=== PATIENT | male | born 1995 | race Caucasian/White ===

== ENCOUNTER 2022-06-08 22:43 | Outpatient (CLI) | payer SELFPAY | END 2022-06-08 22:44 | disposition home or self-care (01) | LOC: AMB 06-27 01:45 | PROVIDERS: PCP Family Medicine; Visit Provider Family Medicine | DX: R45.851 Suicidal ideations (principal) | CPT/HCPCS: A0425; A0429 ==

== ENCOUNTER 2022-06-08 22:58 | Emergency (ER) | payer SELFPAY ==
[2022-06-08 23:12] VITALS: BP 127/87; PULSE 60; RESP 20; TEMP 36.8; O2SAT 99; BMI 23.8
--- NOTE | 2022-06-09 00:10 | ED_ITS ---
HPI - Psych General Chief Complaint: Psychiatric Problem/Disorder Stated Complaint: suicidal Time Seen by Provider: 06/08/22 23:48 History of Present Illness HPI Narrative: 26-year-old young man presented to the emergency department brought by EMS accompanied by police after apparently made threats to kill himself to someone reportedly his girlfriend. He says she is not my girlfriend but he did step in when her baby daddy was not available. He talks about couple kids that he seems to have some sense of responsibility for if she ever needs he says. I have not seen the supposed text. He also notes that he has now been blocked on his phone by her. He however was noted to have initiated a will. I do have the privilege of reading that. He has listed numerous beneficiaries of various items and money. Evidently mentioned to this Bobby that he was planning something in June; the inference understood was some harm to himself. He is denying at this time but does acknowledge that June has been a long month as I point out that it is the 08 of June. Brother (Abner?) apparently in 2013 I believe he says on June 22. Further Alexander's birthday is coming up in 3 days on the . He does have a gun at home. He does bequeath the gun and bullets in his will. He says he only uses it for target practice without intent to hurt himself with it. Underlying history of Crohn's status post partial bowel resection. His says he is unable to eat anything but liquids. He had just had some bad stomach cramps prior to my entering the room. Sometimes he will just eat solid food; force it down and deal with the pain he says. Takes a few swigs of Mountain Dew here in the room. I asked him how things have become so bad. He has mention that he does not have any insurance and so unable to participate in healthcare. Recently apparently mom also was diagnosed with cancer, or at least she mentioned it 2 or 3 months ago. He is unclear what cancer and apparently without any other details. He notes himself to be depressed. Other things that ?suck? in his life are working nights ago, persistent and recurrent abdominal pain, no health insurance, of his brother. At this point he would like his phone back so that he can talk with friends. He is wondering what he needs to do to get out of here. Frustrated that is not at work. Last ingestion of alcohol was a couple of weeks ago; apparently this does not exacerbate his abdominal pain. Denies a history of psychiatric cares. Trying to clarify further this will that was written, he says he just does not know how long he has left with regard to Crohn's. He says it was not senior sales representative of current suicidality. He also says that if I were to check with Bobby I would find police have been to her place numerous times and not once to his. Related Data Home Medications Medication Instructions Recorded Confirmed No Known Home Medications 06/08/22 06/08/22 Allergies Allergy/AdvReac Type Severity Reaction Status Date / Time No Known Drug Allergies Allergy Verified 06/08/22 23:11 [facility] Medical History (Updated 06/09/22 @ 04:54 by Rafael Goldberg MD) Borderline intellectual functioning Chronic static encephalopathy Crohn's disease of both small and large intestine with fistula Major depressive disorder Speech apraxia Surgical History (Updated 06/09/22 @ 02:53 by Dottie Sarkar RN) Hx of appendectomy Exam Narrative: Exam Narrative: Generally downcast. Somewhat sullen. Clearly annoyed to be here. Has speech impediment. Seems nonchalant and a little angry. Intermittently yawns widely.. Closed comedonal acne. Limited conversation. Breathing easily. Does not appear to be in distress. Head is atraumatic. Oropharynx is moist. Dentition in good repair. Lungs appear to be clear. Cardiovascular with regular rate and rhythm Abdomen with postoperative scars and soft. Const: Vital Signs, click to edit/add: Vital Signs - 24 hr 06/08/22 23:12 Temperature 98.2 F Pulse Rate [Pulse Oximeter] 60 Respiratory Rate 20 Blood Pressure [Ri ght Upper Arm] 127/87 Pulse Oximetry 99 Oxygen Delivery Me thod Room Air Documenting provider has reviewed patient's vital signs: yes Course Course Hospital Course: Relaxes over time in the ER though would rather be at work. He expresses this on numerous occasions. Contacts people and laughs with friends on cellphone. This does include Bobby and friend Charlie. Consultations Consultation #1: Attempted to get consult with [facility]. Continued to be deferred. Finally after 5 hours I sat down with Alexander and contracted him for safety Vital Signs Vital signs: Initial Vital Signs Temperature 98.2 F 06/08/22 23:12 Temperature Source Temporal Artery Scan 06/08/22 23:12 Pulse Rate 60 06/08/22 23:12 Respiratory Rate 20 06/08/22 23:12 Blood Pressure 127/87 06/08/22 23:12 Blood Pressure Mean 100 06/08/22 23:12 Pulse Oximetry 99 06/08/22 23:12 Oxygen Delivery Method 06/08/22 23:12 Vital Signs Temperature 98.2 F 06/08/22 23:12 Pulse Rate 60 06/08/22 23:12 Respiratory Rate 20 06/08/22 23:12 Blood Pressure 127/87 06/08/22 23:12 Pulse Oximetry 99 06/08/22 23:12 Oxygen Delivery Method 06/08/22 23:12 Temperature 98.2 F 06/08/22 23:12 Pulse Rate 60 06/08/22 23:12 Respiratory Rate 20 06/08/22 23:12 Blood Pressure 127/87 06/08/22 23:12 Pulse Oximetry 99 06/08/22 23:12 Oxygen Delivery Method 06/08/22 23:12 MDM - Psych MDM Narrative Medical decision making narrative: Spent a long time trying to discover what the challenges might be to his insurance coverage. It appears that had been living at home therefore with mother's income affecting him application. Mother now recently ill and not working. Did give information on [employer] but tried to assist also in applying for financial assistance here at the hospital as well as trying again for MA. I am hopeful that social workers would be able to help after the weekend. Some of this might be complicated by intellectual challenges as well. Medical Records Attestation: I reviewed the patient's medical records. Lab Data Attestation: I reviewed the patient's lab results. Labs: Lab Results 06/09/22 06/09/22 Range/Units 00:44 00:44 Urine Opiates Screen Negative (Negative) Ur Oxycodone Screen Negative (Negative) Urine Methadone Screen Negative (Negative) Ur Propoxyphene Screen Negative (Negative) Ur Barbiturates Screen Negative (Negative) U Tricyclic Antidepress Negative (Negative) Ur Phencyclidine Scrn Negative (Negative) Ur Amphetamines Screen Negative (Negative) U Methamphetamines Scrn Negative (Negative) U Benzodiazepines Scrn Negative (Negative) Urine Cocaine Screen Negative (Negative) U Marijuana (THC) Screen POSITIVE A* (Negative) Ur Drug Screen Comment See Note SARS-CoV-2 (PCR) Negative SARS-CoV-2 (Negative) Discharge Plan Discharge Clinical Impression: Other social stressor, Depression Patient Disposition: Home, Self-Care Condition: Improved Additional Instructions: I understand things are tough right now. Do let people try to help you. Do complete this paperwork and reapply for healthcare assistance. Meanwhile check in with [employer] -- the ones on the paperwork. Will ask our social workers to reach out to you to see if they can help with these applications/process. See your safety contract. If after reaching out to friends or maybe your mom you might still feel unsafe, please return to the emergency department. Prescriptions: No Action No Known Home Medications Follow Up/Referrals: Rafael Cole MD [Primary Care Provider] - Stand Alone Forms: [employer] Info Instructions
--- NOTE | 2022-06-09 00:56 | ED.NURSE ---
in room with patient and patient's cell phone to obtain phone number of the person he threatened suicide to earlier this evening.
[2022-06-09 01:36] LABS: Amphetamine Screen Urine Negative (Negative); Barbiturate Screen Urine Negative (Negative); Benzodiazepines Screen Urine Negative (Negative); Cocaine Screen Urine Negative (Negative); Methadone Screen Urine Negative (Negative); Methamphetamines Screen Urine Negative (Negative); Opiate Screen Urine Negative (Negative); Oxycodone Screen Urine Negative (Negative); Phencyclidine Screen Urine Negative (Negative); Tricyclic Antidepressant Urine Negative (Negative)
[2022-06-09 01:38] LABS: Cannabinoid Screen Urine POSITIVE (Negative)
[2022-06-09 01:51] LABS: SARS PCR* Negative SARS-CoV-2 (Negative)
--- NOTE | 2022-06-10 11:14 | PC.SOCIAL ---
Follow-up phone call to pt. who discharged home and has no insurance. Left pt. a message about the [facility] information that assists with insurance applications as well as assisting with food or housing concerns if needed.
== END 2022-06-09 05:02 | disposition home or self-care (01) ==
PROVIDERS: Emergency Provider Family Medicine; PCP Family Medicine
DX: F32.A Depression, unspecified (principal)
CPT/HCPCS: 80048; 80143; 80179; 80306; 82077; 85025; 87635; 99283

== ENCOUNTER 2023-10-28 22:47 | Outpatient (CLI) | payer BC, SELFPAY | END 2023-10-28 22:48 | disposition home or self-care (01) | LOC: AMB 11-11 12:30 | PROVIDERS: Visit Provider Emergency Medicine Emergency Medical Services | DX: F19.10 Other psychoactive substance abuse, uncomplicated (principal) | CPT/HCPCS: A0425; A0427 ==

== ENCOUNTER 2023-10-28 23:28 | Emergency (ER) | payer BC, SELFPAY ==
[2023-10-28 23:31] VITALS: BP 137/84; PULSE 110; RESP 18; O2SAT 99
[2023-10-28 23:37] VITALS: BP 137/84; PULSE 111; RESP 18; TEMP 36.5; O2SAT 99
--- NOTE | 2023-10-28 23:43 | ED.NURSE ---
Security currently monitoring pt for pt safety.
[2023-10-28 23:45] VITALS: BP 138/80; PULSE 104; RESP 18; O2SAT 100
[2023-10-29] VITALS: BP 129/82; PULSE 109; RESP 18; O2SAT 100
--- NOTE | 2023-10-29 00:12 | ED.GENADULT ---
HPI - General Adult General Chief complaint: Overdose Stated complaint: Overdose Time Seen by Provider: 10/28/23 23:51 Source: patient and EMS Mode of arrival: EMS Limitations: no limitations History of Present Illness HPI narrative: 28-year-old male with the reported history of borderline intellectual functioning presents to emergency department for evaluation of intractable vomiting. Reports that he took acid about 2.5 hours prior to arrival. Reports that he used to and half cards when he typically will only use 1 card recreationally. He denies any intent of self-harm with doing this but rather that he ?thought he could handle it?. Denies severe depression, suicidal thoughts or bat intention with taking the acid. He reports that he has a supply of the drug in his home that he obtained a couple of months ago and has used several doses from that supply. Has not had any significant ill effects previously and the effects tend to last 4-6 hours. He had vomiting, causing his mother to be concerned then call 911. EMS arrived, started IV fluids and administered Zofran. He has had no vomiting since administration of the Zofran. He is able to speak in full sentences and relate tonight history. By the time he arrives to the Emergency Department, reports that he is feeling quite a bit better. He states that he is still ?seeing the strobe lights? which he relates to the acid. He has no history of kidney problems, did not mix any alcohol tonight. Denies use of other substances such as marijuana, cocaine, methamphetamines. States that he does not take any prescription medications. Denies neurological changes or vision difficulties. No stroke-like symptoms. No head injury. He says that he is feeling sleepy and would like to rest. Past medical history is notable for reported borderline intellectual functioning and Crohn's disease. Denies any recent complications from this. No long-term medications, no allergies. ROS is notable for resolved nausea and typical hallucinogenic side effects. Otherwise denies times 12 systems. No neurological, cardiac or skin concerns. Related Data Home Medications Medication Instructions Recorded Confirmed No Known Home Medications 06/08/22 10/28/23 Allergies Allergy/AdvReac Type Severity Reaction Status Date / Time No Known Drug Allergies Allergy Verified 10/28/23 23:40 [facility] Medical History Chronic static encephalopathy ?G93.49 - Other encephalopathy (ICD-10) Borderline intellectual functioning ?R41.83 - Borderline intellectual functioning (ICD-10) Major depressive disorder ?F32.9 - Major depressive disorder, single episode, unspecified (ICD-10) Crohn's disease of both small and large intestine with fistula ?K50.813 - Crohn's disease of both small and large intestine with fistula (ICD-10) Speech apraxia ?R48.2 - Apraxia (ICD-10) Surgical History Hx of appendectomy ?Z90.49 - Acquired absence of other specified parts of digestive tract (ICD-10) Social History Smoking Status: Never smoker Do you use any of these nicotine containing products: E-Cigarettes and Vaping Products Second hand tobacco smoke exposure: No How often do you have a drink containing alcohol: never AUDIT-C Alcohol total score: 0 Non-prescribed substance use: 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 Makes good eye contact, answers questions appropriately. HENMT: Common normals: normocephalic Head and scalp: normocephalic Face and sinus: normal facial exam Other: No signs of facial injury or trauma. Normal external nose. Poor dental hygiene with multiple Diana gingival caries, no signs of tongue biting or oral injury. Eye: Other: Pupils are dilated bilaterally but are equal and reactive. Normal extraocular movements, no nystagmus. Neck & C-Spine: Common normals: full ROM, no lymphadenopathy and no meningeal signs Resp: Common normals: normal respiratory effort, no use of accessory muscles and clear to auscultation bilaterally Effort & inspection: able to speak in complete sentences Auscultation: clear to auscultation bilaterally Cardio: Common normals: regular rate, regular rhythm, S1 normal heart sound and S2 normal heart sound Rate: regular rate Rhythm: regular rhythm Heart sounds: S1 normal and S2 normal Other: Heart rate 90s by the time of my auscultation. GI: Common normals: Normal to inspection, nondistended, normoactive bowel sounds present, soft to palpation, non-tender, no hepatosplenomegaly and no masses Palpation: soft and no hepatosplenomegaly Extremity: Common normals: normal to inspection, full ROM, normal capillary refill and no joint enlargement Neuro: Sensorium/orientation: awake, alert, oriented to person, oriented to place and oriented to time Meningeal signs: no meningeal signs Cranial nerves: CN normal except as noted Speech: speech normal Motor exam: strength 5/5 throughout, no tremor noted and no movement abnormalities noted Psych: Attitude: engaged Other: Mild intoxication but good insight. Medically appropriate for decision making. Skin: Narrative: Acne but no signs of significant secondary bacterial infection or injury. Course Course ED Course: Poison control was contacted. They did recommend a period of observation watching for tachycardia and hyperthermia. Peak on this drug is within 1-2 hours. Will be observed for at least 3.5 hours post ingestion. If there are no signs of significant cardiac abnormality, hyperthermia or neurological change, he can be discharged with family. Discussed typical duration of action of the LSD. Discouraged future use. The Zofran that he was given seems to be working quite well. Typical alarm symptoms reviewed. Patient verbalizes understanding and agreement. Vital Signs Vital signs: Initial Vital Signs Temperature 97.7 F 10/28/23 23:37 Temperature Source Temporal Artery Scan 10/28/23 23:37 Pulse Rate 111 H 10/28/23 23:37 Respiratory Rate 18 10/28/23 23:37 Blood Pressure 137/84 10/28/23 23:37 Blood Pressure Mean 101 10/28/23 23:37 Blood Pressure Position Supine 10/28/23 23:37 Pulse Oximetry 99 10/28/23 23:37 Oxygen Delivery Method Room Air 10/28/23 23:37 Vital Signs Temperature 97.7 F 10/28/23 23:37 Pulse Rate 111 H 10/28/23 23:37 Respiratory Rate 18 10/28/23 23:37 Blood Pressure 137/84 10/28/23 23:37 Pulse Oximetry 99 10/28/23 23:37 Oxygen Delivery Method Room Air 10/28/23 23:37 Temperature 97.7 F 10/28/23 23:37 Pulse Rate 111 H 10/28/23 23:37 Respiratory Rate 18 10/28/23 23:37 Blood Pressure 137/84 10/28/23 23:37 Pulse Oximetry 99 10/28/23 23:37 Oxygen Delivery Method Room Air 10/28/23 23:37 Discharge Plan Discharge Clinical Impression: Drug side effects Patient Disposition: Home w/ Parent or Adult Condition: Improved Instructions: Polysubstance Use Disorder (ED) Additional Instructions: I am glad that you are feeling better after the anti nausea medication and fluids. As we discussed, the side effects that you are experiencing can expect to last somewhere between 10-18 hours. There are no signs of significant complication. Anxiety, headache, body aches, nausea, dizziness, confusion can be common. Drink plenty of nonalcoholic fluids today, eat small, bland meals. I do not recommend that you continue to abuse hallucinogens. Anti nausea medication should reduce her vomiting but it may not eliminate completely. The medication will last 6-8 hours. Activity Level: Activity as Tolerated Discharge Diet: Regular Prescriptions: No Action No Known Home Medications Stand Alone Forms: [employer] Info Instructions
[2023-10-29 00:15] VITALS: BP 131/83; PULSE 107; RESP 18; O2SAT 100
--- NOTE | 2023-10-29 00:15 | ED.NURSE ---
Call to Poison Control. Poison Control states they have concerns for serotonin/stimulant toxicity with this amount of acid ingestion. They state that pt may become hyperthermic quickly, and if this happens, to cool the pt externally. They advise watching pt overnight and keeping track of vital signs. updated.
[2023-10-29 00:30] VITALS: BP 131/80; PULSE 98; RESP 18; TEMP 36.5; O2SAT 100
--- NOTE | 2023-10-29 00:40 | ED.NURSE ---
Pt brought more warm blankets and water. Pt denies nausea at this time.
--- NOTE | 2023-10-29 00:52 | ED.NURSE ---
Pt's mother, Corinne, called with permission of pt to give update. Pt's mother asks if pt is okay to sleep on his own. consulted and states pt is okay on his own. Pt's mother updated. D/c instructions given to pt. Pt verbalizes understanding and denies further questions. Pt's mother en route to pick pt up.
--- NOTE | 2023-10-29 01:01 | ED.NURSE ---
Pt up to bathroom via wheelchair. Denies nausea/vomiting. Pt waiting in wheelchair in room for mother's arrival. Pt given warm blanket and extra emesis bags for drive home.
== END 2023-10-29 01:19 | disposition home or self-care (01) ==
LOC: ED 10-29 00:32
PROVIDERS: Emergency Provider Family Medicine
DX: R11.10 Vomiting, unspecified (principal); T50.901A Poisoning by unspecified drugs, medicaments and biological substances, accidental (unintentional), initial encounter
CPT/HCPCS: 99283